=== PATIENT | male | born 2000 | race Caucasian/White ===

== ENCOUNTER 2024-03-17 08:59 | Emergency (ER) | payer OTHER ==
[~2024-03-17] VITALS: Ht 180.3 cm; Wt 92.4 kg
[2024-03-17] MEDS ORDERED: CREAPOW XX (09:13)
[2024-03-17] MEDS: predniSONE 20 MG TAB PO ONE (11:03)
[2024-03-17] MEDS: diphenhydrAMINE 50MG CAP PO ONE (11:03)
[2024-03-17] MEDS: FAMOTIDINE 20 MG TAB PO ONE (11:03)
[2024-03-17 11:43] LABS: BASO % 0.9 % (0.0-1.0); EOS # 0.2 10^3/uL (0.0-0.5); EOS % 4.7 % (0.0-3.0); HEMATOCRIT 41.8 % (42.0-52.0); HEMOGLOBIN 14.9 g/dl (13.5-17.5); LYMPH # 1.3 10^3/uL (1.5-5.0); LYMPH % 29.8 % (24.0-44.0); MEAN CORPUSCULAR HGB CONC 35.6 g/dl (32.0-36.5); MEAN CORPUSCULAR VOLUME 95.4 fl (80.0-96.0); MONO # 0.4 10^3/uL (0.0-0.8); MONO % 9.4 % (2.0-8.0); NEUTROPHILS # 2.3 10^3/uL (1.5-8.5); PLATELET COUNT, AUTOMATED 240 10^3/uL (150-450); RED BLOOD COUNT 4.38 10^6/uL (4.30-6.10); WHITE BLOOD COUNT 4.3 10^3/uL (4.0-10.0)
[2024-03-17 11:55] LABS: ERYTHROCYTE SEDIMENTATION RATE 2 mm/hr (0-15)
[2024-03-17 12:01] LABS: C REACTIVE PROTEIN QUANTITATIV < 0.40 MG/DL (<1.0)
[2024-03-17 12:03] LABS: ALBUMIN 4.2 G/DL (3.2-5.2); ALKALINE PHOSPHATASE 77 U/L (46-116); ALT/SGPT 30 U/L (7.0-40); AST/SGOT 13 U/L (<34); BILIRUBIN,DIRECT 0.5 MG/DL (<0.4); BILIRUBIN,TOTAL 1.5 MG/DL (0.3-1.2); BLOOD UREA NITROGEN 16 MG/DL (9-23); CALCIUM LEVEL 9.4 MG/DL (8.5-10.1); CARBON DIOXIDE LEVEL 26 MMOL/L (20-31); CHLORIDE LEVEL 109 MMOL/L (98-107); CREATININE FOR GFR 0.82 MG/DL (0.70-1.30); GLOMERULAR FILTRATION RATE > 60.0 (>60); GLUCOSE, FASTING 101 MG/DL (60-100); POTASSIUM SERUM 4.6 MMOL/L (3.5-5.1); SODIUM LEVEL 141 MMOL/L (136-145); TOTAL PROTEIN 6.9 G/DL (5.7-8.2)
[2024-03-17 12:04] LABS: COMPLEMENT C4 19.3 MG/DL (12-36)
[2024-03-17] MEDS ORDERED: CETI-24 PO (12:54)
[2024-03-17] MEDS ORDERED: PRED20TA PO (12:54)
[2024-03-17 12:55] VITALS: BP 121/66; TEMP 97.3; O2SAT 98
[2024-03-20 14:17] LABS: C1 ESTER INHIB. NON FUNCTIONAL 25 mg/dL (21-39)
== END 2024-03-17 13:02 | disposition home or self-care (01) ==
LOC: M ED 08:59
DX: T78.40XA Allergy, unspecified, initial encounter (principal); H02.843 Edema of right eye, unspecified eyelid; R20.2 Paresthesia of skin; Z79.52 Long term (current) use of systemic steroids; Z79.899 Other long term (current) drug therapy
CPT/HCPCS: 36415; 80048; 80076; 83519; 85025; 85280; 85652; 86140; 86160; 86161; 99283; J7512

== ENCOUNTER 2024-07-08 01:31 | Emergency (ER) | payer OTHER ==
[~2024-07-08] VITALS: Ht 180.3 cm; Wt 90.6 kg
[~2024-07-08 01:31] MED LIST: CETI-24 PO; CREAPOW XX; PRED20TA PO
[2024-07-08 01:34] VITALS: TEMP 99
[2024-07-08 02:03] LABS: BASO # 0.1 10^3/uL (0.0-0.2); BASO % 0.7 % (0.0-1.0); EOS # 0.1 10^3/uL (0.0-0.5); EOS % 1.8 % (0.0-3.0); HEMATOCRIT 41.2 % (42.0-52.0); HEMOGLOBIN 14.5 g/dl (13.5-17.5); LYMPH # 1.7 10^3/uL (1.5-5.0); MEAN CORPUSCULAR HEMOGLOBIN 33.6 pg (27.0-33.0); MEAN CORPUSCULAR HGB CONC 35.2 g/dl (32.0-36.5); MEAN CORPUSCULAR VOLUME 95.6 fl (80.0-96.0); MONO # 0.5 10^3/uL (0.0-0.8); MONO % 7.8 % (2.0-8.0); NEUTROPHILS # 4.4 10^3/uL (1.5-8.5); NEUTROPHILS % 64.6 % (36.0-66.0); PLATELET COUNT, AUTOMATED 282 10^3/uL (150-450); RED BLOOD COUNT 4.31 10^6/uL (4.30-6.10); WHITE BLOOD COUNT 6.8 10^3/uL (4.0-10.0)
[2024-07-08] MEDS: FAMOTIDINE IV BAG 20 MG in IV 1 EA IV ONE (02:15)
[2024-07-08] MEDS: diphenhydrAMINE 50MG/ML VIAL IV ONE (02:15)
[2024-07-08] MEDS: methylPREDNISolone 125MG 2ML VIAL IV ONE (02:15)
[2024-07-08 02:27] LABS: C REACTIVE PROTEIN QUANTITATIV < 0.40 MG/DL (<1.0)
[2024-07-08 02:28] LABS: BLOOD UREA NITROGEN 17 MG/DL (9-23); CALCIUM LEVEL 9.8 MG/DL (8.5-10.1); CARBON DIOXIDE LEVEL 29 MMOL/L (20-31); CHLORIDE LEVEL 106 MMOL/L (98-107); CREATININE FOR GFR 0.86 MG/DL (0.70-1.30); GLOMERULAR FILTRATION RATE > 60.0 (>60); GLUCOSE, FASTING 106 MG/DL (60-100); POTASSIUM SERUM 4.3 MMOL/L (3.5-5.1); SODIUM LEVEL 139 MMOL/L (136-145)
[2024-07-08 05:15] VITALS: BP 112/59; O2SAT 98
[2024-07-08] MEDS ORDERED: PRED20TA PO (05:19)
== END 2024-07-08 05:31 | disposition home or self-care (01) ==
LOC: M ED 01:31
DX: T78.40XA Allergy, unspecified, initial encounter (principal); F10.10 Alcohol abuse, uncomplicated; Z79.52 Long term (current) use of systemic steroids; Z79.899 Other long term (current) drug therapy
CPT/HCPCS: 80048; 85025; 86140; 93041; 94760; 96374; 96375; 99285; J1200; J2919; S0028